=== PATIENT | male | born 1985 | race Caucasian/White ===

== ENCOUNTER 2023-09-18 07:34 | Outpatient (CLI) | payer OTHER ==
[2023-09-18 12:27] LABS: BASOPHILS # (AUTO) 0.1 10^3/uL (0.0-0.1); BASOPHILS % (AUTO) 1.3 %; EOSINOPHILS # (AUTO) 0.2 10^3/uL (0.0-0.7); EOSINOPHILS % (AUTO) 3.3 %; LYMPHOCYTES % (AUTO) 32.3 %; MEAN CORPUSCULAR HEMOGLOBIN 27.6 pg (27.0-31.0); MEAN CORPUSCULAR VOLUME 86.4 fL (80.0-94.0); MEAN PLATELET VOLUME 9.4 fL (7.4-11.4); MONOCYTES # (AUTO) 0.5 10^3/uL (0.0-1.0); MONOCYTES % (AUTO) 8.9 %; NEUTROPHILS # (AUTO) 3.3 10^3/uL (1.5-6.6); NEUTROPHILS % (AUTO) 53.9 %; PLT - PLATELET COUNT 380 10^3/uL (130-450); RED BLOOD COUNT 5.79 10^6/uL (4.70-6.10); RED CELL DISTRIBUTION WIDTH 13.5 % (12.0-15.0); WHITE BLOOD COUNT 6.1 x10^3/uL (4.8-10.8)
[2023-09-18 13:09] LABS: ALBUMIN 4.4 g/dL (3.2-5.5); ALBUMIN/GLOBULIN RATIO 1.8 (1.0-2.2); ALKALINE PHOSPHATASE 57 IU/L (42-121); ALT ALANINE AMINOTRANSFERASE 56 IU/L (10-60); AST ASPARTATE AMINOTRANSFERASE 31 IU/L (10-42); BILIRUBIN,TOTAL 0.4 mg/dL (0.2-1.0); BUN - BLOOD UREA NITROGEN 12 mg/dL (6-20); CALCIUM 9.5 mg/dL (8.5-10.3); CARBON DIOXIDE - CO2 31 mmol/L (21-32); CHLORIDE 105 mmol/L (101-111); CHOL/HDL RATIO 4.3 (<5.0); CHOLESTEROL 156 mg/dL; CREATININE 1.1 mg/dL (0.6-1.3); GFR - MDRD 76 (>89); GLUCOSE 101 mg/dL (74-104); HDL CHOLESTEROL 36 mg/dL; LDL CHOLESTEROL,CALCULATED 80 mg/dL; LDL/HDL RATIO 2.2 (<3.6); POTASSIUM 4.1 mmol/L (3.5-4.5); SODIUM 139 mmol/L (135-145); TOTAL PROTEIN 6.8 g/dL (6.4-8.9); TRIGLYCERIDES 198 mg/dL (48-352); VLDL CHOLESTEROL 40 mg/dL
== END 2023-09-18 07:35 | disposition home or self-care (01) ==
LOC: LAB.N 07:34
PROVIDERS: ATTEND Physician Assistant
DX: Z00.00 Encounter for general adult medical examination without abnormal findings (principal); E78.5 Hyperlipidemia, unspecified
CPT/HCPCS: 36415; 80053; 80061; 83721; 85025

== ENCOUNTER 2023-11-15 14:46 | Outpatient (CLI) | payer OTHER ==
--- NOTE | 2023-11-15 15:38 | Sleep Patient Instructions ---
Sleep Center Visit Summary - Patient Visit Information Reason for Visit: Initial consult for evaluation of sleep disordered breathing and other sleep issues. - Patient Instructions Instructions Attached: Sleep Study, Sleep Study Home Monitor Additional Instructions: You will be completing a sleep study, either an in-lab polysomnography (PSG) or home sleep study (HST). You will follow-up in the sleep care office after the sleep study is completed to hear the results and talk about therapy, if needed. You will be called by our office staff to schedule this appointment, but you may contact us with any questions. - Clinic Information Contact: [facility] [address] [place] [id number] [email or web address] T: [phone]
--- NOTE | 2023-11-15 15:39 | SLEEP CARE CONSULTATION ---
Information from patient questionnaire entered by Alejandro Bowers. I have reviewed and concur with the information entered by Alejandro Bowers. This document represents the service I personally performed and the decisions made by me, Layla Sanford ARNP. History of Present Illness Service Date and Time: 11/15/2023 1446 Reason for Visit: New patient Chief Complaint: reports: Snoring, Observed pauses in breathing Date of Onset: MULTIPLE YRS Usual bedtime: 2200 Time it takes to fall asleep: LESS THAN 20MINS Snores at night: Yes Observed to quit breathing while asleep: Yes Sleeps alone due to snoring: Yes Number of times waking at night: 2-3 Reasons for waking at night: reports: Snoring, Gasping for air, Bathroom, Other (NOISE). denies: Choking Toss, Turn, or Twitch while sleeping: Yes Recalls having dreams: Yes (mostly nightmares these days, 1-2 times a wk) Usually gets out of bed at: 0630 Feels refreshed in the morning: Yes (for the most part, not really groggy) Morning headache: No Sleepy or fatigued during the day: No Ever fallen asleep while driving: No Takes day naps: Yes (once a week on the weekend) Dreams during day naps: No Prior sleep studies: No Additional HPI information: I had the pleasure of seeing ЮЛИЯ KILGORE today regarding the possibility of him having a sleep disorder. His current complaints are observed pauses in breathing and snoring. His tells him that he stops breathing and snoring. His dentist has also told him he may have sleep apnea. He says losing weight does eliminate his snoring but he has difficulty losing weight. 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 Patient is and lives in . Have you smoked in the past 12 months: No Cigarettes per day (20/pack): 20 Years of smokin Quit date: 2007 Smoking Pack Years: 5.0 Alcohol use: Yes Alcohol amount and frequency: 1 BEER EVERY OTHER DAY Caffeine use: Yes Caffeine amount and frequency: 1 PER DAY Family History Family history of sleep disordered breathing: Yes Family Hx Sleep Apnea: Father: Snoring, Sleep apnea - Untreated Allergies and Home Medications Known drug allergies: No Drug allergies reviewed: Yes Home medication list reviewed: Yes (as listed) Allergy and home medication list: Allergies No Known Drug Allergies Allergy (Verified 11/15/23 15:01) Home Medications Diazepam [Valium] See Rx Instructions .ROUTE .COMPLEX 11/15/23 [History] Famotidine See Rx Instructions .ROUTE .COMPLEX 11/15/23 [History] Multivitamin See Rx Instructions .ROUTE .COMPLEX 11/15/23 [History] Psyllium Husk [Psyllium Fiber] See Rx Instructions .ROUTE .COMPLEX 11/15/23 [History] Rosuvastatin Calcium See Rx Instructions .ROUTE .COMPLEX 11/15/23 [History] Review of Systems Weight gain over past 5 years: 0 Weight loss over past 5 years: 30 with diet 2020, regained by 2022 Cardiovascular: denies: high blood pressure Gastrointestinal: reports: heartburn, abdominal pain Neurological: denies: headaches Psychiatric: reports: anxiety. denies: depression Ear/Nose/Throat: reports: wisdom teeth removed. denies: tonsillectomy Musculoskeletal: reports: neck pain, back pain Immunologic: reports: rash Physical Exam Vital signs obtained and entered by: ALEJANDRO Lara MA Blood Pressure: 136/78 (RIGHT ARM) Cuff size: regular Heart Rate: 86 O2 Saturation: 96 Height: 6 ft 1 in Weight: 238 lb Body Mass Index: 31.4 BMI Classification: Obese Neck circumference: 17.75 Nostrils: patent to airflow Mouth and throat: narrow oropharynx Soft palate: long Hard palate: normal Uvula: long, edematous Uvula visualization: 25% Mallampati Class III Tongue: enlarged in size with teeth yoo on lateral edges Tonsils: 3+/kissing Neck: normal w/o lymphadenopathy or thyromegaly Heart: regular rate and rhythm Lungs: clear bilaterally Impression and Plan 1. Suspected Obstructive Sleep Apnea-Hypopnea Syndrome, as suggested by a history of loud and irregular snoring, observed cessation of breath while asleep and gasping or choking in sleep. Narrow oropharynx and obesity are common predisposing factors for obstructive sleep apnea-hypopnea syndrome. I recommend proceeding to polysomnography to confirm the diagnosis and to assess severity. If the patient has significant sleep disordered breathing, a manual CPAP titration study will also be performed to find the optimal treatment pressure. I informed the patient of what the sleep studies involve and after some discussion, obtained agreement to proceed. The pathophysiology of obstructive sleep apnea-hypopnea syndrome was discussed with the patient and health risks of cardiovascular and cerebrovascular disease if not treated. Risks of drowsy driving discussed in detail and patient advised to avoid long distance driving and to caul puller at the first sign of drowsiness. Patient agreed to plan. * Schedule polysomnography +- manual CPAP titration study and return in 1-2 weeks after the study to discuss result and initiate therapy. * Avoid long distance driving or driving when feeling sleepy. * Avoid alcohol, sedative and muscle relaxant around bedtime. * Attempt to lose weight. * Review instructions provided by trained office staff on how to prepare for the sleep study. * Return for follow-up after sleep study completed. Counseling Topics: Weight loss health impact Plan: PSG/HST and follow up Visit Type: In Office Time Spent with Patient (minutes): 30 Provider Statement: I spent 100% of the Face to Face Visit with the patient with greater than 50% spent counseling the patient and coordination of care.
[2023-11-15 15:44] VITALS: BP 136/78; O2SAT 96
== END 2023-11-15 14:47 | disposition home or self-care (01) ==
LOC: SC 14:46
PROVIDERS: ATTEND Nurse Practitioner Family
DX: R06.81 Apnea, not elsewhere classified (principal); G47.8 Other sleep disorders; R06.83 Snoring; Z87.891 Personal history of nicotine dependence; E66.9 Obesity, unspecified; Z68.31 Body mass index [BMI] 31.0-31.9, adult
CPT/HCPCS: 99203; 99212

== ENCOUNTER 2024-01-04 12:29 | Outpatient (CLI) | payer OTHER | END 2024-01-04 12:30 | disposition home or self-care (01) | LOC: SC 12:29 | PROVIDERS: ATTEND Nurse Practitioner Family | DX: G47.33 Obstructive sleep apnea (adult) (pediatric) (principal); R09.02 Hypoxemia; E66.9 Obesity, unspecified; Z68.31 Body mass index [BMI] 31.0-31.9, adult | CPT/HCPCS: 95806 ==

== ENCOUNTER 2024-01-31 14:12 | Outpatient (CLI) | payer OTHER ==
--- NOTE | 2024-01-31 15:16 | Sleep Patient Instructions ---
Sleep Center Visit Summary - Patient Visit Information Reason for Visit: Sleep study follow-up - Patient Instructions Instructions Attached: CPAP Additional Instructions: You are being started on CPAP therapy with pressure setting at 4-15 cmH2O. You will need to call the sleep care office to set up your follow up once you have your CPAP machine to check compliance and response to therapy at that time. You may call the office with any concerns about pressure feeling too low or too much for adjustment, if needed. You should contact DME supplier for any questions or concerns about mask or equipment. Please call office to schedule a follow up appointment in the sleep care office one month after obtaining new device. - Clinic Information Contact[facility] [address] [place] [address] [email or web address] T: [phone]
--- NOTE | 2024-01-31 15:18 | SLEEP CARE CONSULTATION ---
Information from patient questionnaire entered by Brandi Herr. I have reviewed and concur with the information entered by Brandi Herr. This document represents the service I personally performed and the decisions made by , Layla Sanford ARNP. History of Present Illness Service Date and Time: 01/31/2024 1412 Initial [place] Sleepiness Scale score: 3 (10/21/2023) Current [place] Sleepiness Scale score: 3 (01/31/2024) Additional HPI information: ЮЛИЯ KILGORE returns for follow up and results of the recently performed home sleep study. The sleep study done on 01/04/24 showed moderate obstructive sleep apnea with an average AHI of 21 and kadi oxygen saturation of 82%. I explained the pathophysiology behind obstructive sleep apnea. We then spent quite a bit of time discussing different treatment options. For mild obstruc tive sleep apnea, surgery and oral appliance are alternatives to nasal CPAP therapy but in moderate or severe cases, nasal CPAP is the most effective and reliable treatment. Because apnea is primarily in supine position, then positional management therapy could be effective. Methods discussed such as positioning with pillows, using a T-shirt with tennis balls in the back or commercial products that have a pillow format on back to prevent supine sleep. I reviewed the impact of weight changes on sleep apnea and strongly recommended losing weight. After some discussion, the patient opted to go with the nasal CPAP therapy. Nasal autoCPAP set at 4-15 cmH20 will be ordered with rationale explained. A manual titration study will be ordered if unable to find optimal pressure with office adjustments. I explained how CPAP machine works and what to expect when using the machine. Using CPAP every night in order to get used to it was emphasized. Patient advised to put CPAP mask on before getting into bed so as not to fall asleep without CPAP. To assist acclimation to CPAP use, it could also be used for a short time during day while reading or watching TV. The patient was instructed to call the CPAP supplier to discuss any mechanical problem that may occur. If the mask given is uncomfortable or is difficult to keep on through the night even with adjustment, contact the CPAP supplier as many will replace with another mask style if notified before 30 days. If snoring or perceives is not getting enough air or too much air from the machine, notify this office. Patient counseled not drink alcohol less than 4 hours before bedtime as it can increase snoring and apnea. Patient was cautioned about risks of drowsy driving until sleepiness symptoms resolve. Patient denies drowsy driving. Sleep Study - Results Prior sleep studies: No Polysomnography/Home Sleep Study results: Physician Impression: The quality of the study is good. The length of the study is adequate (> 240 minutes). Please also see the tabulated and graphic data. 1. Obstructive Sleep Apnea-Hypopnea (ICD-10 G47.33), moderate, with an AHI of 21.0/hr and kadi SaO2 of 82%. During the study, the patient had 100 apneas (100 obstructive, 0 central, 0 mixed) and 75 hypopneas. The longest episode lasted 123.5 seconds. The respiratory events occurred slightly more frequently during supine sleep (supine AHI was 25.9 and non-supine, 10.18). 2. Hypoxemia (ICD-10 R09.02), mild, with the lowest oxygen saturation of 82 % and 11.2 minutes with SaO2 under 90%. Baseline oxygen saturation was normal (Average oxygen saturation was 94%). Allergies and Home Medications Known drug allergies: No Drug allergies reviewed: Yes Home medication list reviewed: Yes (no changes) Allergy and home medication list: Allergies No Known Drug Allergies Allergy Review of Systems Review of systems same as previous: Yes (no changes) Physical Exam Vital signs obtained and entered by: Layla Anderson NP Blood Pressure: 141/79 Cuff size: long (right arm) Heart Rate: 100 O2 Saturation: 97 Height: 6 ft 1 in Weight: 237 lb 1.6 oz Body Mass Index: 31.2 BMI Classification: Obese Impression and Plan 1. Obstructive Sleep Apnea-Hypopnea Syndrome, moderate, with lowest oxygen saturation of 82%. Positive pressure therapy could benefit anxiety and gastric reflux. As mentioned above, the patient will be started on nasal autoCPAP therapy with pressure set at 4-15 cmH2O. A manual titration study will be completed if unable to find optimal treatment pressure with office adjustments. Compliance guidelines also reviewed. A copy of compliance guidelines will be given for reference at check out. Because the apnea is more severe supine, I instructed to avoid sleeping supine using pillow positioning until able to start CPAP use. 2. Hypoxemia, mild, with a kadi oxygen saturation of 82% and 11.2 minutes spent under 90%. The baseline oxygen saturation was normal with an average oxygen saturation of 94%. 3. Obesity, unspecified. Currently patients BMI is 31.2. Obesity increases the risk of apnea, CPAP pressure requirements and overall health risks especially cardiovascular and diabetes. Thus patient is advised to lose weight. * Nasal auto CPAP therapy, pressure at 4-15 cm H2O. * Attempt to lose weight. * Avoid alcohol consumption near bedtime. * Avoid supine sleep until using CPAP. * The patient is again cautioned about driving until sleepiness completely resolves. * Return one month after CPAP obtained. I will assess response to therapy and compliance at that time. Counseling Topics: Weight loss health impact Prescriptions: Auto CPAP Visit Type: In Office Time Spent with Patient (minutes): 15 Provider Statement: I spent 100% of the Face to Face Visit with the patient with greater than 50% spent counseling the patient and coordination of care.
[2024-01-31 15:25] VITALS: BP 141/79; O2SAT 97
== END 2024-01-31 14:13 | disposition home or self-care (01) ==
LOC: SC 14:12
PROVIDERS: ATTEND Nurse Practitioner Family
DX: G47.33 Obstructive sleep apnea (adult) (pediatric) (principal); R09.02 Hypoxemia; E66.9 Obesity, unspecified; Z68.31 Body mass index [BMI] 31.0-31.9, adult
CPT/HCPCS: 99212